=== PATIENT | male | born 1955 | race Caucasian/White ===

== ENCOUNTER 2025-01-04 08:46 | Outpatient (CLI) | payer OTHER | END 2025-01-04 08:47 | disposition home or self-care (01) | LOC: MADRAD 08:46 | PROVIDERS: ATTEND Chiropractor | DX: M19.011 Primary osteoarthritis, right shoulder (principal); M19.012 Primary osteoarthritis, left shoulder; M17.0 Bilateral primary osteoarthritis of knee; M16.0 Bilateral primary osteoarthritis of hip; M19.071 Primary osteoarthritis, right ankle and foot; M19.072 Primary osteoarthritis, left ankle and foot | CPT/HCPCS: 72170 ==